=== PATIENT | female | born 1990 | race Two or more races ===

== ENCOUNTER 2019-08-04 13:16 | Observation (INO) | payer MEDICAID ==
[~2019-08-04] VITALS: Ht 160 cm; Wt 68.9 kg
[2019-08-04] MEDS ORDERED: PNV1TABL76 PO (13:44)
[2019-08-06] MEDS ORDERED: PREN-118 PO (01:47)
[2019-08-06] MEDS ORDERED: FERR325T6 PO (01:47)
== END 2019-08-04 15:35 | disposition home or self-care (01) ==
LOC: 8 EST LDRP 13:16
PROVIDERS: ADMIT Specialist; ATTEND Specialist
DX: O26.853 Spotting complicating pregnancy, third trimester (principal); Z3A.39 39 weeks gestation of pregnancy; O26.893 Other specified pregnancy related conditions, third trimester; R10.30 Lower abdominal pain, unspecified
CPT/HCPCS: 99281; G0378